=== PATIENT | male | born 1960 | race Two or more races ===

== ENCOUNTER 2017-04-22 11:57 | Emergency (ER) | payer OTHER ==
[~2017-04-22] VITALS: Ht 175.3 cm; Wt 97.5 kg
[2017-04-22 12:04] VITALS: Ht 175.3 cm; Wt 97.5 kg
[2017-04-22 12:56] VITALS: BP 138/92
== END 2017-04-22 12:56 | disposition home or self-care (01) ==
LOC: ED 11:57
DX: J11.1 Influenza due to unidentified influenza virus with other respiratory manifestations (principal)

== ENCOUNTER 2018-05-25 16:27 | Emergency (ER) | payer SELFPAY ==
[~2018-05-25] VITALS: Ht 175.3 cm; Wt 99.8 kg
[2018-05-25 16:29] VITALS: Ht 175.3 cm; Wt 99.8 kg
[2018-05-25 18:00] VITALS: BP 153/93
== END 2018-05-25 18:01 | disposition home or self-care (01) ==
LOC: ED 16:27
DX: S81.812A Laceration without foreign body, left lower leg, initial encounter (principal); W26.8XXA Contact with other sharp object(s), not elsewhere classified, initial encounter; Y93.89 Activity, other specified; Y92.89 Other specified places as the place of occurrence of the external cause; Y99.8 Other external cause status
CPT/HCPCS: 90715; J2001

== ENCOUNTER 2018-05-30 18:30 | Emergency (ER) | payer SELFPAY ==
[~2018-05-30] VITALS: Ht 175.3 cm; Wt 98.4 kg
[2018-05-30 18:43] VITALS: Ht 175.3 cm; Wt 98.4 kg
[2018-05-30 19:22] VITALS: BP 159/108
== END 2018-05-30 19:22 | disposition home or self-care (01) ==
LOC: ED 18:30
DX: S81.812D Laceration without foreign body, left lower leg, subsequent encounter (principal); X58.XXXD Exposure to other specified factors, subsequent encounter

== ENCOUNTER 2018-06-06 12:34 | Emergency (ER) | payer MEDICAID ==
[~2018-06-06] VITALS: Ht 170.2 cm; Wt 98.4 kg
[2018-06-06 12:54] VITALS: BP 140/97; Ht 170.2 cm; Wt 98.4 kg
== END 2018-06-06 14:18 | disposition home or self-care (01) ==
LOC: ED 12:34
DX: S81.812D Laceration without foreign body, left lower leg, subsequent encounter (principal); R03.0 Elevated blood-pressure reading, without diagnosis of hypertension; X58.XXXD Exposure to other specified factors, subsequent encounter